=== PATIENT | male | born 1995 | race African-American/Black ===

== ENCOUNTER 2016-09-25 18:45 | Inpatient (IN) | payer OTHER ==
[~2016-09-25] VITALS: Ht 170.2 cm; Wt 81.0 kg
[~2016-09-25 18:45] MED LIST: METH18 PO
[2016-09-25] MEDS ORDERED: LORazepam 2 MG/ML VIAL IM ONE ×2 (19:00→20:00)
[2016-09-25 19:15] VITALS: BP 141/67; PULSE 106; RESP 20; TEMP 99.1; O2SAT 96
[2016-09-25] MEDS ORDERED: LORazepam 2 MG/ML VIAL IV PUSH ONE (19:30)
[2016-09-25 19:42] LABS: AUTOMATED NEUTROPHIL # 3.7 TH/MM3 (1.8-7.7); BASOPHIL % 0.4 % (0.0-2.0); EOSINOPHIL # 0.2 TH/MM3 (0-0.4); EOSINOPHIL % 2.5 % (0.0-4.0); HEMATOCRIT 42.5 % (39.0-51.0); HEMO FLAGS DIFF FINAL; LYMPH % 34.1 % (9.0-44.0); LYMPHOCYTE # 2.5 TH/MM3 (1.0-4.8); MEAN CORPUSCULAR HEMOGLOBIN 31.3 PG (27.0-34.0); MEAN CORPUSCULAR HGB CONC 35.2 % (32.0-36.0); MONO % 12.9 % (0.0-8.0); NEUT % 50.1 % (16.0-70.0); PLATELET COUNT 266 TH/MM3 (150-450); RED BLOOD COUNT 4.78 MIL/MM3 (4.50-5.90); RED CELL DISTRIBUTION WIDTH 13.1 % (11.6-17.2); WHITE BLOOD COUNT 7.3 TH/MM3 (4.0-11.0)
[2016-09-25 19:46] LABS: BACTERIA, URINE RARE /hpf; BLOOD, URINE NEG (NEG); COMMENT (UR) CULT NOT INDICATED; CULTURE IF INDICATED CULT NOT INDICATED; GLUCOSE,URINE NEG (NEG); KETONE, URINE NEG (NEG); MUCUS URINE FEW /lpf (OCC); NITRITE,URINE NEG (NEG); URINE COLOR YELLOW (YELLW/STRAW)
[2016-09-25 19:52] VITALS: BP 121/64; PULSE 100; RESP 18; TEMP 99.5; O2SAT 92
[2016-09-25] MEDS ORDERED: SERT-132 PO (19:55)
[2016-09-25] MEDS ORDERED: METH20CA4 PO (19:56)
[2016-09-25] MEDS ORDERED: LORA-373 PO (19:56)
[2016-09-25 20:19] LABS: ANION GAP 9 MEQ/L (5-15); BICARBONATE 25.5 MEQ/L (21.0-32.0); BLOOD UREA NITROGEN 12 MG/DL (7-18); CHLORIDE 106 MEQ/L (98-107); SODIUM (NA) 140 MEQ/L (136-145)
[2016-09-25 20:22] LABS: AST (GOT) 74 U/L (15-39)
[2016-09-25 20:34] LABS: ALKALINE PHOSPHATASE 66 U/L (45-117); ALT (GPT) 40 U/L (9-52); GLOMERULAR FILTRATION RATE 83 ML/MIN (>89)
[2016-09-25 20:35] LABS: TOTAL BILIRUBIN ADULT 0.5 MG/DL (0.2-1.0)
--- NOTE | 2016-09-25 21:42 | PD ---
HPI Chief Complaint: Psychiatric Symptoms Time Seen by Provider: 18:57 Travel History International Travel<30 days: No Contact w/Intl Traveler<30days: No Traveled to known affect area: No History of Present Illness HPI patient is a 21-year-old male presents emergency Department under [employer] act for bizarre behavior. Patient apparently has a history of bipolar is on Ritalin and sertraline and Xanax. Apparently the patient was behaving bizarrely and 911 was called and officers placed him under Bradley act. Patient had an similar previous presentations emergency department in the past where he admitted to marijuana or marijuana like substance ingestion and took 6 kg of Ativan IM to control him. Patient apparently was also striking against officers and had to be handcuffed first transportation here. He is on arrival singing operative notes in no apparent distress but does become agitated anytime someone interacts with him. 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) Social History Alcohol Use: No Tobacco Use: No Substance Use: Yes Allergies-Medications (Allergen,Severity, Reaction): Coded Allergies: Molds and Smuts (Verified Allergy, Severe, 07/08/16) Reported Meds & Prescriptions Reported Meds & Active Scripts Active Reported Lorazepam 0.5 Mg Tab 0.5 Mg PO Q4H PRN Methylphenidate CD 24 HR (Methylphenidate HCl) 20 Mg Capcr 20 Mg PO DAILY Sertraline (Sertraline HCl) 50 Mg Tab 50 Mg PO DAILY Concerta (Methylphenidate HCl) 18 Mg Leidy Unknown Dose PO DAILY Review of Systems Except as stated in HPI: all other systems reviewed are Neg Physical Exam Narrative GENERAL: Well-developed well-nourished, agitated, singing opera notes. SKIN: Warm and dry. No bruising or lacerations on his head trunk abdomen back neck or extremities. HEAD: Atraumatic. Normocephalic. EYES: Pupils equal and round. No scleral icterus. No injection or drainage. ENT: No nasal bleeding or discharge. Mucous membranes pink and moist. NECK: Trachea midline. No JVD. CARDIOVASCULAR: Regular rate and rhythm. No murmur appreciated. RESPIRATORY: No accessory muscle use. Clear to auscultation. Breath sounds equal bilaterally. GASTROINTESTINAL: Abdomen soft, non-tender, nondistended. Hepatic and splenic margins not palpable. MUSCULOSKELETAL: No obvious deformities. No clubbing. No cyanosis. No edema. NEUROLOGICAL: Awake and alert. No obvious cranial nerve deficits. Follows commands in all 4 extremities. Normal speech. PSYCHIATRIC: Labile, delirious, agitated. Data Data Last Documented VS Vital Signs Date Time Temp Pulse Resp B/P Pulse Ox O2 Delivery O2 Flow Rate FiO2 09/25/16 23:41 15 97 Room Air 09/25/16 19:52 99.5 100 121/64 Orders Complete Blood Count With Diff (09/25/16 18:58) Comprehensive Metabolic Panel (09/25/16 18:58) Thyroid Stimulating Hormone (09/25/16 18:58) Urinalysis - C+S If Indicated (09/25/16 18:58) Electrocardiogram (09/25/16 18:58) Psych Screen (09/25/16 18:58) Lorazepam Inj (Ativan Inj) (09/25/16 19:00) Restraints Violent (09/25/16 18:58) Drug Screen, Random Urine (09/25/16 18:58) Alcohol (Ethanol) (09/25/16 18:58) Lorazepam Inj (Ativan Inj) (09/25/16 19:30) Lorazepam Inj (Ativan Inj) (09/25/16 20:00) Labs Laboratory Tests Test 09/25/16 19:15 White Blood Count 7.3 TH/MM3 Red Blood Count 4.78 MIL/MM3 Hemoglobin 14.9 GM/DL Hematocrit 42.5 % Mean Corpuscular Volume 89.0 FL Mean Corpuscular Hemoglobin 31.3 PG Mean Corpuscular Hemoglobin 35.2 % Concent Red Cell Distribution Width 13.1 % Platelet Count 266 TH/MM3 Mean Platelet Volume 9.3 FL Neutrophils (%) (Auto) 50.1 % Lymphocytes (%) (Auto) 34.1 % Monocytes (%) (Auto) 12.9 % Eosinophils (%) (Auto) 2.5 % Basophils (%) (Auto) 0.4 % Neutrophils # (Auto) 3.7 TH/MM3 Lymphocytes # (Auto) 2.5 TH/MM3 Monocytes # (Auto) 0.9 TH/MM3 Eosinophils # (Auto) 0.2 TH/MM3 Basophils # (Auto) 0.0 TH/MM3 CBC Comment DIFF FINAL Differential Comment Urine Color YELLOW Urine Turbidity CLEAR Urine pH 6.0 Urine Specific Reliance 1.020 Urine Protein NEG mg/dL Urine Glucose (UA) NEG mg/dL Urine Ketones NEG mg/dL Urine Occult Blood NEG Urine Nitrite NEG Urine Bilirubin NEG Urine Urobilinogen LESS THAN 2.0 MG/DL Urine Leukocyte Esterase NEG Urine RBC 2 /hpf Urine WBC 1 /hpf Urine Bacteria RARE /hpf Urine Mucus FEW /lpf Microscopic Urinalysis Comment CULT NOT INDICATED Sodium Level 140 MEQ/L Potassium Level 4.0 MEQ/L Chloride Level 106 MEQ/L Carbon Dioxide Level 25.5 MEQ/L Anion Gap 9 MEQ/L Blood Urea Nitrogen 12 MG/DL Creatinine 1.33 MG/DL Estimat Glomerular Filtration 83 ML/MIN Rate Random Glucose 101 MG/DL Calcium Level 8.6 MG/DL Total Bilirubin 0.5 MG/DL Aspartate Amino Transf 74 U/L (AST/SGOT) Alanine Aminotransferase 40 U/L (ALT/SGPT) Alkaline Phosphatase 66 U/L Total Protein 8.0 GM/DL Albumin 4.2 GM/DL Thyroid Stimulating Hormone 0.981 uIU/ML 3rd Gen Urine Opiates Screen NEG Urine Barbiturates Screen NEG Urine Amphetamines Screen NEG Urine Benzodiazepines Screen NEG Urine Cocaine Screen NEG Urine Cannabinoids Screen POS Ethyl Alcohol Level LESS THAN 3 MG/DL MDM Medical Decision Making Medical Screen Exam Complete: Yes Emergency Medical Condition: Yes Differential Diagnosis Agitated delirium, psychosis, bipolar disorder, substance abuse. Narrative Course Patient was roomed in the emergency department, for his protection and protection my staff he was placed in 4 point restraints on arrival. Over the next hour and a half he was given a total of Ativan 6 mg IM, slowly became more sedate and more redirectable. Labs are reassuring. No evidence of trauma to his person. He is medically stable for psychiatric evaluation and disposition. Diagnosis Primary Impression: Delirium Condition: Stable David Guidry MD Sep 25, 2016 21:42
[2016-09-25 23:41] VITALS: RESP 15; O2SAT 97
[2016-09-26 02:16] VITALS: BP 135/63; PULSE 79; RESP 18; O2SAT 99
[2016-09-26 06:21] VITALS: BP 160/66; PULSE 99; RESP 17; O2SAT 99
[2016-09-26] MEDS ORDERED: diphenhydrAMINE HCL 50 MG CAP PO PRN (10:45)
[2016-09-26 10:50] VITALS: BP 121/78; PULSE 88; RESP 16; TEMP 98.6; O2SAT 99
[2016-09-26] MEDS ORDERED: diphenhydrAMINE HCL 50 MG/ML VIAL IM PRN (11:00)
[2016-09-26] MEDS ORDERED: traZODone HCL 50 MG TAB PO PRN (11:00)
[2016-09-26] MEDS ORDERED: LORazepam 2 MG/ML VIAL IM ONE (11:00)
[2016-09-26] MEDS ORDERED: ACETAMINOPHEN 325 MG TAB PO PRN (11:00)
[2016-09-26] MEDS ORDERED: MAGNESIUM HYDROXIDE SUSP 30 ML CUP PO PRN (11:00)
[2016-09-26] MEDS ORDERED: ZIPRASIDONE MESYLATE 20 MG VIAL IM ONE (11:00)
[2016-09-26] MEDS ORDERED: diphenhydrAMINE HCL 50 MG/ML VIAL IM ONE (11:00)
[2016-09-26] MEDS ORDERED: LORazepam 2 MG/ML VIAL IM PRN (11:00)
--- NOTE | 2016-09-26 16:55 | EKG ---
Date Performed: 09/25/2016 Time Performed: 20:20:26 PTAGE: 21 years EKG: Sinus rhythm WITH MARKED SINUS ARRHYTHMIA NONSPECIFIC T-WAVE ABNORMALITY Since previous tracing, no significant c hange noted ABNORMAL ECG PREVIOUS TRACING : 07/08/2016 12.46 DOCTOR: Andrew Kline Interpretating Date/Time 09/26/2016 16:54:03
[2016-09-26] MEDS: REMOVE OLD NICOTINE PATCH T-DERMAL SCH (21:00)
[2016-09-26] MEDS: LORazepam 1 MG TAB PO PRN (21:24)
[2016-09-26] MEDS: OLANZapine 5 MG TAB PO SCH (21:24)
[2016-09-27 06:08] VITALS: BP 151/72; PULSE 107; RESP 18; TEMP 98.3; O2SAT 96
[2016-09-27 08:19] LABS: ANION GAP 8 MEQ/L (5-15); BICARBONATE 25.5 MEQ/L (21.0-32.0); BLOOD UREA NITROGEN 12 MG/DL (7-18); CHLORIDE 107 MEQ/L (98-107); GLOMERULAR FILTRATION RATE 97 ML/MIN (>89); POTASSIUM 3.7 MEQ/L (3.5-5.1); SODIUM (NA) 140 MEQ/L (136-145)
[2016-09-27 08:22] LABS: HDL CHOLESTEROL 36.8 MG/DL (40.0-60.0); LDL CHOLESTEROL 59 MG/DL (0-99)
[2016-09-27] MEDS: NICOTINE 21 MG/24 HR PATCH T-DERMAL SCH (09:00)
[2016-09-27] MEDS: LORazepam 1 MG TAB PO PRN (09:14)
[2016-09-27] MEDS: OLANZapine 5 MG TAB PO SCH (09:14)
[2016-09-27 09:23] LABS: HEMOGLOBIN A1a 1.1 %; HEMOGLOBIN A1b 1.4 %; HEMOGLOBIN Ao 86.9 %; HEMOGLOBIN LA1C 1.7 %; HEMOGLOBIN P3 3.2 %
--- NOTE | 2016-09-27 09:52 | HHI.HP ---
Provisional Diagnosis Admission Date Sep 26, 2016 at 10:01 [place] I. 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 Cannabis abuse [place] II. Deferred [place] V. GAF is 20 presently Certification of Person's Competence To Provide Express and Informed Consent I have personally examined Estella Yan , a person being served at [facility] on, Sep 27, 2016 09:52. Express and informed consent means consent voluntarily given in writing, by a competent person, after sufficient explanation and disclosure of the subject matter involved to enable the person to make a knowing and willful decision without any element of force, fraud, deceit, duress, or other form of constraint or coercion. This person is 18 years of age or older, is not now known to be incompetent to consent to treatment with a guardian advocate, and does not have a health care surrogate or proxy currently making medical treatment decisions. I have found this person to be one of the following: [] Competent to provide express and informed consent, as defined above, for voluntary admission to this facility and is competent to provide express and informed consent for treatment. He/she has the consistent capacity to make well reasoned, willful, and knowing decisions concerning his or her medical or mental health treatment. The person fully and consistently understands the purpose of the admission for examination/placement and is fully capable of personally exercising all rights assured [place] [x] Incompetent to provide express and informed consent to voluntary admission, and this is incompetent to provide express and informed consent to treatment. The person must be transferred to involuntary status and a petition for a guardian advocate filed with the Circuit Court. [] Refusing to provide express and informed consent to voluntary admission but is competent to provide express and informed consent for treatment. The person must be discharged or transferred to involuntary status. Form shall be completed within 24 hours of a person's arrival at the receiving facility and filed in the clinical record of each person: 1. Admitted on a voluntary basis 2. Permitted to provide express and informed consent to his/her own treatment 3. Allowed to transfer from involuntary to voluntary status 4. Prior to permitting a person to consent to his or her own treatment after having been previously found incompetent to consent to treatment. History of Present Illness Capacity: Lacks Capacity HPI Mr. Yan is a 21-year-old male with a reported history of ADHD , anxiety and psychosis who presents under a Bradley act by law enforcement alleging aggressive behaviors. Reviewing the electronic medical record, I see that the patient was in the emergency room in July for agitated delirium thought to be associated with use of substances. He also had an admission last September under Dr. Eldridge with a self-limited psychosis thought to be due to substance use. Patient seen and examined with counselor. Chart reviewed. Case discussed with nursing staff. Patient has been extremely agitated on the unit requiring multiple ETO's. At the time of my evaluation the patient is disorganized and internally stimulated. He is quite easily agitated and becomes threatening at times. He admits to audiovisual hallucinations "here and there." He denies any suicidal or homicidal ideation but is definitely unreliable contract for safety in his present state. He endorses feelings of thought manipulation. Affect is quite labile. He is fairly dysphoric during my evaluation but subsequently is exalting and singing loudly on the unit. Psychiatric interview is fairly limited because of his degree of psychotic impairment at present. Even patient's degree of psychiatric impairment I have obtained collateral from patient's uncle, Jd Emerson at [phone]. He notes the patient is a student at [employer] and had been doing fairly well when last they spoke ~1 month ago. He was reportedly somewhat upset at his mother at that time. Mr. Emerson notes that patient's mother has mental issues and "killed her ." He also notes that the patient's other uncle has some mental illness that renders him "like a baby." Mr. Emerson is willing to act as patient's HCS if necessary. Past psychiatric history: Patient reports prior diagnosis of ADHD, anxiety and psychosis but does not agree with the psychosis diagnosis. He is treated by a Dr. Hernandes and is prescribed Zoloft, Concerta and Ativan he says. He also takes Seroquel "when I get revved up." He reports his only previous psychiatric admission was here at [facility]. History of suicide attempts. Family history: Patient unsure of family history. Chemical dependency history: Patient admits to recent use of cannabis. Social history: Patient reports that he lives with his mother. He is single with no children. He is a student and is not presently working. He denies any legal issues. No reported access to guns or firearms. Review of Systems ROS Limitations: Psychotic, Poor Historian Other No reported headache, vision or hearing changes, chest pain, shortness of breath , bowel or bladder issues. No other physical complaints. Past Psych History Psychological trauma history Unable to obtain given patient's degree of psychiatric impairment Violence risk - others (6 mos) Elevated. Patient has been agitated on the unit. Violence risk - self (6 mos) elevated given psychosis. Past Family Social History Coded Allergies: Molds and Smuts (Verified Allergy, Severe, 07/08/16) Past Medical History See electronic medical record Reported Medications Lorazepam 0.5 Mg Tab0.5 Mg PO Q4H PRN (For mild anxiety / dyspnea) Ref 0 09/25/16 Methylphenidate CD 24 HR 20 Mg Capcr20 Mg PO DAILY #30 CAP Ref 0 09/25/16 Sertraline 50 Mg Tab50 Mg PO DAILY #30 TAB Ref 0 09/25/16 Methylphenidate ER 24 HR (Concerta)18 Mg TaberUnknown Dose PO DAILY #30 TAB Ref 0 07/08/16 Current Medications Medications (Trade) Dose Ordered Sig/Brendon Route Start Time Stop Time Status Last Admin (Ativan) 1 mg Q6H PRN PO 09/26/16 11:00 09/27/16 09:14 (Ativan Inj) 1 mg Q6H PRN IM 09/26/16 11:00 (Benadryl) 50 mg Q6H PRN PO 09/26/16 10:45 (Benadryl Inj) 50 mg Q6H PRN IM 09/26/16 11:00 (Desyrel) 50 mg HS PRN PO 09/26/16 11:00 09/26/16 21:24 (Tylenol) 650 mg Q4H PRN PO 09/26/16 11:00 (Milk Of Magnesia Liq) 30 ml DAILY PRN PO 09/26/16 11:00 (Mag-Al Plus Susp Liq) 30 ml Q6H PRN PO 09/26/16 11:00 (Habitrol 21 Mg Patch.24 Hr) 1 patch DAILY T-DERMAL 09/27/16 09:00 Miscellaneous Information 1 HS T-DERMAL 09/26/16 21:00 (ZyPREXA) 5 mg BID PO 09/26/16 21:00 09/27/16 09:14 Patient's Strengths (min. 2) In a monitored setting. Verbally fluent. Physical Exam Physical examination completed by ED provider. On my examination today, patient is well-nourished and well-developed and in no acute physical distress. No abnormal motor movements noted. No signs of withdrawal noted. Labs and vital signs reviewed. Vital Signs Vital Signs Date Time Temp Pulse Resp B/P Pulse Ox O2 Delivery O2 Flow Rate FiO2 09/27/16 06:08 98.3 107 18 151/72 96 09/26/16 06:21 Room Air Lab Results Item Value Date Time White Blood Count 7.3 TH/MM3 09/25/161914 Hemoglobin 14.9 GM/DL 09/25/161914 Platelet Count 266 TH/MM3 09/25/161914 Sodium Level 140 MEQ/L 09/27/16719 Potassium Level 3.7 MEQ/L 09/27/16719 Chloride Level 107 MEQ/L 09/27/16719 Carbon Dioxide Level 25.5 MEQ/L 09/27/16719 Blood Urea Nitrogen 12 MG/DL 09/27/16719 Creatinine 1.16 MG/DL 09/27/16719 Total Bilirubin 0.5 MG/DL 09/25/161914 Aspartate Amino Transf (AST/SGOT) 74 U/L H 09/25/161914 Alanine Aminotransferase (ALT/SGPT) 40 U/L 09/25/161914 Alkaline Phosphatase 66 U/L 09/25/161914 Urine Cannabinoids Screen POS H 09/25/161914 Ethyl Alcohol Level LESS THAN 3 MG/DL 09/25/161914 Urinalysis bland. Mental Status Examination Patient is casually dressed. He is fairly well groomed. No motoric abnormalities noted. He is somewhat psychomotor agitated. Speech is rambling and somewhat pressured. Language and fund of knowledge seem average. Mood is reportedly fair but affect is quite labile. Thought process somewhat disorganized. Associations loose. Feelings of thought manipulation articulated. Endorses vague audiovisual hallucinations and appears internally stimulated. Denies suicidal or homicidal ideation but is likely unreliable to contract for safety in his present state. Insight and judgment are poor. Assessment & Plan Problem List: (1) Psychosis ICD Code: F29 (2) Cannabis abuse ICD Code: F12.10 Assessment & Plan This is a 21-year-old male with a history of substance-induced psychoses who presents under a Bradley act in a psychotic state. Toxicology is positive only for cannabinoids but the patient does have a history of synthetic use in the past. Patient's previous episodes of psychosis have been self- limited, but this episode seems more persistent and associated with greater behavioral disturbance. Patient requires psychiatric admission at this time for safety, observation and stabilization. Admit inpatient. Involuntary status. I've completed first opinion. Consult for second opinion. Request healthcare surrogate and guardian advocate. Patient was started on Zyprexa yesterday in the ED for the management of psychosis but seems to respond better to the Geodon ETO's he has received. I will discontinue Zyprexa and replace with Geodon PO/IM. Hold reported home psychotropics; the stimulant in particular could exacerbate his condition. Ativan as needed for anxiety, Benadryl as needed for sleep, Cogentin as needed for EPS. Vitals every shift. Counselor to see and obtain further collateral. Disposition planning. Estimated length of stay: 3-5 days. Discharge Planning Pending psychiatric stabilization Request HC Surrog/Guard Advoc?: Yes Problem Qualifiers (1) Psychosis: Qualified Code: F23 - Brief psychotic disorder Jonathan Way MD Sep 27, 2016 09:52
[2016-09-27] MEDS ORDERED: ZIPRASIDONE MESYLATE 20 MG VIAL IM STA (11:26)
[2016-09-27] MEDS ORDERED: LORazepam 2 MG/ML VIAL IM STA (11:26)
[2016-09-27] MEDS ORDERED: diphenhydrAMINE HCL 50 MG/ML VIAL IM STA (11:26)
[2016-09-27] MEDS ORDERED: ZIPRASIDONE MESYLATE 20 MG VIAL IM PRN (12:15)
[2016-09-27] MEDS ORDERED: BENZTROPINE MESYLATE 1 MG TAB PO PRN (12:15)
[2016-09-27] MEDS ORDERED: BENZTROPINE MESYLATE 2 MG/2 ML VIAL IM PRN (12:15)
--- NOTE | 2016-09-27 15:03 | PD.CONS ---
Provisional Diagnosis Admission Date Sep 26, 2016 at 10:01 [place] I. 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 Cannabis abuse [place] II. Deferred [place] V. GAF is 20 presently History of Present Illness Service Psychiatry Consult Requested By Primary Care Physician No Primary Care Physician HPI Mr. Yan is a 21-year-old male with a reported history of ADHD , anxiety and psychosis who presents under a Bradley act by law enforcement alleging aggressive behaviors. Reviewing the electronic medical record, I see that the patient was in the emergency room in July for agitated delirium thought to be associated with use of substances. He also had an admission last September under Dr. Eldridge with a self-limited psychosis thought to be due to substance use. Patient seen and examined with counselor. Chart reviewed. Case discussed with nursing staff. Patient has been extremely agitated on the unit requiring multiple ETO's. At the time of my evaluation the patient is disorganized and internally stimulated. He is quite easily agitated and becomes threatening at times. He admits to audiovisual hallucinations "here and there." He denies any suicidal or homicidal ideation but is definitely unreliable contract for safety in his present state. He endorses feelings of thought manipulation. Affect is quite labile. He is fairly dysphoric during my evaluation but subsequently is exalting and singing loudly on the unit. Psychiatric interview is fairly limited because of his degree of psychotic impairment at present. Even patient's degree of psychiatric impairment I have obtained collateral from patient's uncle, Jd Emerson at [phone]. He notes the patient is a student at [employer] and had been doing fairly well when last they spoke ~1 month ago. He was reportedly somewhat upset at his mother at that time. Mr. Emerson notes that patient's mother has mental issues and "killed her ." He also notes that the patient's other uncle has some mental illness that renders him "like a baby." Mr. Emerson is willing to act as patient's HCS if necessary. Past psychiatric history: Patient reports prior diagnosis of ADHD, anxiety and psychosis but does not agree with the psychosis diagnosis. He is treated by a Dr. Hernandes and is prescribed Zoloft, Concerta and Ativan he says. He also takes Seroquel "when I get revved up." He reports his only previous psychiatric admission was here at [facility]. History of suicide attempts. Family history: Patient unsure of family history. Chemical dependency history: Patient admits to recent use of cannabis. Social history: Patient reports that he lives with his mother. He is single with no children. He is a student and is not presently working. He denies any legal issues. No reported access to guns or firearms. 09/27/16 Of note dictated by Dr. Way reviewed and agreed with. Dr. Way has signed first opinion petition supporting Bradley act. Patient seen by me in his room with nurse Alie somewhat sedated after being given an ETO for out-of- control behavior loud paranoid and intrusive. Dr. Way is signed first opinion petition supporting Bradley act. I agree. Patient meets criteria for involuntary psychiatric hospitalization under the Bradley act. Thus I will cosign second opinion petition supporting Bradley act Past Family Social History Coded Allergies: Molds and Smuts (Verified Allergy, Severe, 07/08/16) Reported Medications Lorazepam 0.5 Mg Tab0.5 Mg PO Q4H PRN (For mild anxiety / dyspnea) Ref 0 09/25/16 Methylphenidate CD 24 HR 20 Mg Capcr20 Mg PO DAILY #30 CAP Ref 0 09/25/16 Sertraline 50 Mg Tab50 Mg PO DAILY #30 TAB Ref 0 09/25/16 Methylphenidate ER 24 HR (Concerta)18 Mg TaberUnknown Dose PO DAILY #30 TAB Ref 0 07/08/16 Current Medications Medications (Trade) Dose Ordered Sig/Brendon Route Start Time Stop Time Status Last Admin (Tylenol) 650 mg Q4H PRN PO 09/26/16 11:00 (Milk Of Magnesia Liq) 30 ml DAILY PRN PO 09/26/16 11:00 (Mag-Al Plus Susp Liq) 30 ml Q6H PRN PO 09/26/16 11:00 (Habitrol 21 Mg Patch.24 Hr) 1 patch DAILY T-DERMAL 09/27/16 09:00 Miscellaneous Information 1 HS T-DERMAL 09/26/16 21:00 (Benadryl) 50 mg HS PRN PO 09/27/16 21:00 (Ativan) 2 mg Q6H PRN PO 09/27/16 17:00 (Ativan Inj) 2 mg Q6H PRN IM 09/27/16 17:00 (Cogentin) 1 mg Q12HR PRN PO 09/27/16 12:15 (Cogentin Inj) 1 mg Q12HR PRN IM 09/27/16 12:15 (Geodon) 40 mg BIDPC PO 09/27/16 18:00 (Geodon Inj) 20 mg BIDPC PRN IM 09/27/16 12:15 Patient's Strengths (min. 2) In a monitored setting. Verbally fluent. Physical Exam Vital Signs Vital Signs Date Time Temp Pulse Resp B/P Pulse Ox O2 Delivery O2 Flow Rate FiO2 09/27/16 06:08 98.3 107 18 151/72 96 09/26/16 06:21 Room Air Mental Status Examination Speech: Rapid, Other (disorganized) Orientation: Person Memory: Unremarkable (poor) Thought Process: Linear, Other (somewhat disorganized) Thought Content: Paranoid Hallucination Type: Auditory (vague) Attention and Concentration: Other (poor) Suicidal Ideation: No Previous Suicide Attempts: No Homicidal Ideation: No Previous Homicide Attempts: No Insight: Poor Judgement: Poor Affect: Other (increased range and intensity) Mood: Irritable Motor Activity: Normal gait Assessment & Plan Problem List: (1) Psychosis ICD Code: F29 (2) Cannabis abuse ICD Code: F12.10 Assessment & Plan Estimated LOS: days Request HC Surrog/Guard Advoc?: Yes Problem Qualifiers (1) Psychosis: Qualified Code: F23 - Brief psychotic disorder Vikram Eldridge MD Sep 27, 2016 15:03
[2016-09-27] MEDS ORDERED: LORazepam 2 MG/ML VIAL IM PRN (17:00)
[2016-09-27] MEDS: ZIPRASIDONE HCL 40 MG CAP PO SCH (17:27)
[2016-09-27 18:27] VITALS: BP 109/62; PULSE 88; RESP 18; TEMP 98.2
[2016-09-27] MEDS ORDERED: diphenhydrAMINE HCL 50 MG CAP PO PRN (21:00)
[2016-09-27] MEDS: REMOVE OLD NICOTINE PATCH T-DERMAL SCH (21:00)
[2016-09-28 06:14] VITALS: BP 144/118; PULSE 99; RESP 18; TEMP 98.3; O2SAT 98
[2016-09-28] MEDS: LORazepam 1 MG TAB PO PRN ×3 (06:30→20:37)
[2016-09-28] MEDS ORDERED: FLUMAZENIL 0.5 MG/5 ML VIAL IV PUSH PRN (08:15)
[2016-09-28] MEDS ORDERED: LORazepam 2 MG TAB PO PRN (08:15)
[2016-09-28] MEDS ORDERED: LORazepam 1 MG TAB PO PRN (08:15)
[2016-09-28] MEDS ORDERED: LORazepam 2 MG/ML VIAL IV PUSH PRN ×4 (08:15)
[2016-09-28] MEDS ORDERED: diphenhydrAMINE HCL 50 MG/ML VIAL IM STA (08:27)
[2016-09-28] MEDS ORDERED: ZIPRASIDONE MESYLATE 20 MG VIAL IM STA (08:27)
--- NOTE | 2016-09-28 08:28 | HHI.PYPN ---
Subjective Remarks Patient seen and examined. Chart reviewed. Case discussed with nursing staff. Prior to my evaluation, patient is once again singing and exalting on the unit. Affect remains quite labile, and during the course of our interview he varies between exuberant glee and extreme dysphoria. Mood is "amazing! Today is better than all the days!" He remains internally stimulated. He is impulsive, intrusive, and disinhibited. Very low frustration tolerance, and becomes agitated and frankly threatening when he learns he will not be discharged today. Patient required ETO with Geodon, Ativan and Benadryl IM for agitation. Review of Systems ROS Limitations: Psychotic, Poor Historian Other No physical complaints today. Objective Alert: Yes [place]: Person, Place, Date (approx) Mood: Agitated, Angry, Anxious, Oppositional, Other (Manic) Affect: Labile Memory Intact: Comment (Not formally assessed) Hallucinations: Other (Int stim) Delusions: Yes Delusion Type: Grandiose, Paranoid Suicidal: Ideation (No SI but unreliable to contract for safety in present state.) Homicidal: Ideation (No HI but unreliable to contract for safety in present state.) Insight/Judgement Poor Remarks No abnormal motor movements noted. Speech hyperverbal, somewhat pressured. TP perseverative on discharge. Labs Labs reviewed. No new labs. Extended tox pending. Vitals/IOs Vital Signs Date Time Temp Pulse Resp B/P Pulse Ox O2 Delivery O2 Flow Rate FiO2 09/28/16 06:14 98.3 99 18 144/118 98 09/26/16 06:21 Room Air Assessment & Plan Problem List: (1) Psychosis Assessment & Plan: with affective overlay. Rule-out BPAD/SAD, mixed severe with psychosis. ICD Code: F29 (2) Cannabis abuse ICD Code: F12.10 Assessment & Plan Titrate Geodon to 60mg BIDPC for psychosis with plans for daily dose titration to effect. Geodon IM PRN refuses PO Geodon. For mood stabilization, I will orally load with Depakote ER, so long as he will take it. Patient has a mild AST elevation (although sample was hemolyzed) but other LFTs are ok. Plt ok. I will therefore load at the lower end of the range, slightly less than 20mg/kg , or 1500mg qHS and plan to check LFTs tomorrow and again when we check VPA level after the weekend. Continue to monitor closely on the unit. Violent prec. Continue other medications and care as ordered. Justification for Cont. Inpt. Impairment and safety. Impairment in reality construction. Impairment in social function. Medication changes requiring monitoring. High risk for decompensation in a lower level of care. Discharge Planning Pending psychiatric stabilization. Request HC Surrog/Guard Advoc?: Yes Problem Qualifiers (1) Psychosis: Qualified Code: F23 - Brief psychotic disorder Jonathan Way MD Sep 28, 2016 08:28
[2016-09-28 08:43] LABS: AMPHETAMINE, URINE NEG (NEG); BARBITURATES, URINE NEG (NEG); COCAINE, URINE NEG (NEG)
[2016-09-28] MEDS: ZIPRASIDONE HCL 40 MG CAP PO SCH (08:59)
[2016-09-28] MEDS: NICOTINE 21 MG/24 HR PATCH T-DERMAL SCH (09:00)
[2016-09-28 15:15] VITALS: BP 135/81; PULSE 88
[2016-09-28] MEDS: ZIPRASIDONE HCL 60 MG CAP PO SCH (18:26)
[2016-09-28 19:31] VITALS: BP 135/81; PULSE 88; RESP 16; TEMP 98.3
[2016-09-28] MEDS: DIVALPROEX SODIUM E.R. 500 MG TAB PO SCH (20:37)
[2016-09-28] MEDS: REMOVE OLD NICOTINE PATCH T-DERMAL SCH (20:45)
[2016-09-28 21:41] LABS: INDIRECT BILIRUBIN 0.3 MG/DL (0.0-0.8); TOTAL BILIRUBIN ADULT 0.4 MG/DL (0.2-1.0)
[2016-09-29 06:09] VITALS: BP 133/77; PULSE 103; RESP 18; TEMP 98.2; O2SAT 97
[2016-09-29] MEDS: NICOTINE 21 MG/24 HR PATCH T-DERMAL SCH (08:38)
[2016-09-29] MEDS: LORazepam 1 MG TAB PO PRN ×2 (08:38→20:00)
[2016-09-29] MEDS: ZIPRASIDONE HCL 60 MG CAP PO SCH (08:38)
--- NOTE | 2016-09-29 10:52 | HHI.PYPN ---
Subjective Remarks Patient seen and examined with counselor and the [facility] health techs for staff safety given patient's level of agitation yesterday. Chart reviewed. Case discussed with nursing staff who reports the patient was high-energy yesterday evening but not particularly aggressive. On my examination today, the patient remains somewhat elated. He says that he feels "amazing. I feel great. I feel balanced." He denies audiovisual hallucinations but remains internally preoccupied. He is somewhat grandiose. His mood quickly sours when we discuss the need to monitor him over the weekend. He visibly stiffens but is able to restrain himself from explosive anger. His insight into his current illness is poor. He apparently thinks he has to get back to school or risk failure. Counselor reassures him that we will provide him a medical excuse for his absence from school. No side effects from medications. Review of Systems ROS Limitations: Psychotic, Poor Historian Other no physical complaints today Objective Alert: Yes [place]: Person, Place Mood: Angry, Anxious Affect: Labile (somewhat less) Memory Intact: Comment (Not formally assessed) Hallucinations: Other (remains somewhat internally stimulated) Delusions: Yes Delusion Type: Grandiose, Paranoid Suicidal: Ideation (No SI but remains unreliable to contract for safety in present state.) Homicidal: Ideation (No HI but remains unreliable to contract for safety in present state.) Insight/Judgement Poor Remarks Thought process marginally more linear. Speech less pressured. No abnormal motor movements noted. Labs Test 09/28/16 21:18 Total Bilirubin 0.4 MG/DL Direct Bilirubin 0.1 MG/DL Indirect Bilirubin 0.3 MG/DL Aspartate Amino Transf 38 U/L (AST/SGOT) Alanine Aminotransferase 36 U/L (ALT/SGPT) Alkaline Phosphatase 59 U/L Total Protein 7.1 GM/DL Albumin 3.8 GM/DL Labs reviewed. LFTs within normal limits. Vitals/IOs Vital Signs Date Time Temp Pulse Resp B/P Pulse Ox O2 Delivery O2 Flow Rate FiO2 09/29/16 06:09 98.2 103 18 133/77 97 09/26/16 06:21 Room Air Assessment & Plan Problem List: (1) Psychosis ICD Code: F29 (2) Cannabis abuse ICD Code: F12.10 Assessment & Plan We are definitely seeing a trajectory of improvement in this patient with the addition of Depakote and titration of Geodon. I will plan to titrate Geodon over the weekend. Depakote level has been ordered for after the weekend. Continue to monitor on the inpatient unit. Continue other medications and care as ordered. Justification for Cont. Inpt. Concern for ongoing impairments in safety. Impairment in reality construction. Impairment in social function. Very high risk for decompensation in a lower level of care pending psychiatric stabilization. Discharge Planning Pending psychiatric stabilization. Request HC Surrog/Guard Advoc?: Yes Problem Qualifiers (1) Psychosis: Qualified Code: F23 - Brief psychotic disorder Jonathan Way MD Sep 29, 2016 10:52
[2016-09-29] MEDS: ZIPRASIDONE HCL 80 MG CAP PO SCH (18:47)
[2016-09-29] MEDS: DIVALPROEX SODIUM E.R. 500 MG TAB PO SCH (19:59)
[2016-09-29] MEDS: REMOVE OLD NICOTINE PATCH T-DERMAL SCH (21:00)
[2016-09-29 22:47] VITALS: BP 135/81; PULSE 88; RESP 16; TEMP 98.3; O2SAT 97
[2016-09-30 06:21] VITALS: BP 151/79; PULSE 99; RESP 18; TEMP 98.3; O2SAT 94
[2016-09-30] MEDS: ZIPRASIDONE HCL 80 MG CAP PO SCH ×2 (08:49→18:03)
[2016-09-30] MEDS: NICOTINE 21 MG/24 HR PATCH T-DERMAL SCH (08:49)
[2016-09-30] MEDS: LORazepam 1 MG TAB PO PRN (08:57)
--- NOTE | 2016-09-30 15:49 | HHI.PYPN ---
Subjective Remarks Patient was seen, note reviewed yesterday, and case discussed with nursing. Patient has not shown any aggressive behaviors or thoughts today. He was visiting before this interview. Mood remains elated thought process somewhat bizarre. Patient says that he is waking up after a long slumber. Patient claims his psychiatric medications reporting him in the slumber. Patient says he enjoys listening to music because again lowers heartbeat help his anxiety. Denies auditory visual hallucinations. Patient is asking for lower doses of medication and in when his request was declined psychoeducation he does not show any irritability or anger Objective Alert: Yes [place]: Person, Place Mood: Angry, Anxious Affect: Labile (somewhat less) Memory Intact: Comment (Not formally assessed) Hallucinations: Other (remains somewhat internally stimulated) Delusions: Yes Delusion Type: Grandiose, Paranoid Suicidal: Ideation (No SI but remains unreliable to contract for safety in present state.) Homicidal: Ideation (No HI but remains unreliable to contract for safety in present state.) Insight/Judgement Poor Vitals/IOs Vital Signs Date Time Temp Pulse Resp B/P Pulse Ox O2 Delivery O2 Flow Rate FiO2 09/30/16 06:21 98.3 99 18 151/79 94 Assessment & Plan Problem List: (1) Psychosis ICD Code: F29 (2) Cannabis abuse ICD Code: F12.10 Assessment & Plan Continue current treatment plan Justification for Cont. Inpt. Patient will decompensate in a less restrictive setting Request HC Surrog/Guard Advoc?: Yes Problem Qualifiers (1) Psychosis: Qualified Code: F23 - Brief psychotic disorder Carlin Vargas DO Sep 30, 2016 15:48
[2016-09-30 19:45] VITALS: BP 132/69; PULSE 104; RESP 19; TEMP 97.6; O2SAT 89
[2016-09-30] MEDS: REMOVE OLD NICOTINE PATCH T-DERMAL SCH (21:00)
[2016-09-30] MEDS: DIVALPROEX SODIUM E.R. 500 MG TAB PO SCH (21:35)
[2016-10-01 05:38] VITALS: BP 129/78; PULSE 94; RESP 21; TEMP 98.4; O2SAT 100
[2016-10-01] MEDS: LORazepam 1 MG TAB PO PRN ×2 (08:50→17:10)
[2016-10-01] MEDS: ALUMINUM/MAGNESIUM/SIMETH 30 ML CUP PO PRN (08:50)
[2016-10-01] MEDS: ZIPRASIDONE HCL 80 MG CAP PO SCH ×2 (08:50→18:00)
[2016-10-01] MEDS: NICOTINE 21 MG/24 HR PATCH T-DERMAL SCH (08:55)
--- NOTE | 2016-10-01 16:30 | HHI.PYPN ---
Subjective Remarks Patient was seen and case discussed with nursing. Patient slightly less elevated today. Continues to sing opera music to himself on a daily basis per nursing. Patient says that's part of his routine. He is sleeping well per patient. Compliant with his medications. No bizarre statements today. No delusions elicited. Behaving well on the unit Objective Alert: Yes [place]: Person, Place Mood: Angry, Anxious Affect: Labile (somewhat less) Memory Intact: Comment (Not formally assessed) Hallucinations: Other (remains somewhat internally stimulated) Delusions: Yes Delusion Type: Grandiose, Paranoid Suicidal: Ideation (No SI but remains unreliable to contract for safety in present state.) Homicidal: Ideation (No HI but remains unreliable to contract for safety in present state.) Insight/Judgement Improving Vitals/IOs Vital Signs Date Time Temp Pulse Resp B/P Pulse Ox O2 Delivery O2 Flow Rate FiO2 10/01/16 05:38 98.4 94 21 129/78 100 Assessment & Plan Problem List: (1) Psychosis ICD Code: F29 (2) Cannabis abuse ICD Code: F12.10 Assessment & Plan Continue current treatment plan Justification for Cont. Inpt. Patient will decompensate in a less restrictive setting Request HC Surrog/Guard Advoc?: Yes Problem Qualifiers (1) Psychosis: Qualified Code: F23 - Brief psychotic disorder Carlin Vargas DO Oct 01, 2016 16:30
[2016-10-01 17:16] VITALS: BP 114/69; PULSE 93; RESP 18; TEMP 98.1; O2SAT 100
[2016-10-01] MEDS: DIVALPROEX SODIUM E.R. 500 MG TAB PO SCH (20:40)
[2016-10-01] MEDS: REMOVE OLD NICOTINE PATCH T-DERMAL SCH (21:00)
[2016-10-02 05:58] VITALS: BP 150/71; PULSE 95; RESP 20; TEMP 97.8; O2SAT 96
[2016-10-02] MEDS: ZIPRASIDONE HCL 80 MG CAP PO SCH ×2 (08:14→17:24)
[2016-10-02] MEDS: NICOTINE 21 MG/24 HR PATCH T-DERMAL SCH (08:15)
[2016-10-02 08:19] LABS: INDIRECT BILIRUBIN 0.2 MG/DL (0.0-0.8); TOTAL BILIRUBIN ADULT 0.3 MG/DL (0.2-1.0)
[2016-10-02 10:05] LABS: BATH SALTS (MDPV) UR NEG (NEG); ECSTASY (MDMA) UR NEG (NEG); HEROIN (6-ACETYLMORPHINE) UR NEG (NEG); K2 SPICE UR NEG (NEG); OBMETHADONE UR NEG (NEG); OXYCODONE (PERCODAN) NEG (NEG); PHENCYCLIDINE URINE NEG (NEG)
--- NOTE | 2016-10-02 10:16 | HHI.PYPN ---
Subjective Remarks Patient seen and examined. Chart reviewed. Case discussed with nursing staff. Per nursing staff, patient has some ongoing thought process disorganization but did sleep well last night. He remains disinhibited, and I find him belting out some musical tune as he is walking around the unit. On my examination today , the patient says that he feels "amazing, I'm just waiting to get out." He says that he continues to struggle with containing his anger but feels this too is improving. He says that he prefers the psychotropics he is prescribed here to what his outpatient psychiatrist was prescribing, noting, "they been treating me right. I feel like I can focus without stimulants." He denies side effects from medications. He remains quite discharge focused, and when I recommend that he remain for further stabilization, he once again has a flash of anger, gritting his teeth and visibly stiffening. He is able to avoid behavioral outburst however. Review of Systems Other No physical complaints today Objective Alert: Yes [place]: Person, Place Mood: Other (Actively working at remaining calm. Remains somewhat irascible however.) Affect: Labile Memory Intact: Comment (Not formally assessed) Hallucinations: Other (less int stim) Delusions: Yes Delusion Type: Grandiose Suicidal: Ideation (No SI but remains unreliable to contract for safety) Homicidal: Ideation (No HI but remains unreliable to contract for safety.) Insight/Judgement Poor Remarks No abnormal motor movements noted. TP more linear. Speech generally wnl for rate, tone, volume. Labs Labs reviewed. Depakote level within the therapeutic range. Ammonia level not elevated. LFTs okay. Test 10/02/16 07:25 Total Bilirubin 0.3 MG/DL Direct Bilirubin 0.1 MG/DL Indirect Bilirubin 0.2 MG/DL Aspartate Amino Transf 17 U/L (AST/SGOT) Alanine Aminotransferase 29 U/L (ALT/SGPT) Alkaline Phosphatase 66 U/L Ammonia 28 MCMOL/L Total Protein 7.2 GM/DL Albumin 3.7 GM/DL Valproic Acid (Depakene) Level 97 MCG/ML Vitals/IOs Vital Signs Date Time Temp Pulse Resp B/P Pulse Ox O2 Delivery O2 Flow Rate FiO2 10/02/16 05:58 97.8 95 20 150/71 96 Assessment & Plan Problem List: (1) Bipolar disorder ICD Code: F31.9 (2) Cannabis abuse ICD Code: F12.10 Assessment & Plan I have adjusted patient's diagnosis to reflect my suspicion that the patient suffers from a bipolar illness, presently manic. We are making inroads in this radha with Geodon and Depakote, and I will titrate his Geodon in service of further mood stabilization. Although the patient is improving, my sense of the cases that if he were discharged at this point he would rapidly become medication nonadherent and decompensate secondary to ongoing poor insight. I will therefore continue to monitor him on the inpatient unit. Continue other medications and care as ordered. Justification for Cont. Inpt. Impairment in reality construction. Medication changes in process. High risk for decompensation in a lower level of care. Discharge Planning Pending psychiatric stabilization. Hopeful for discharge middle to end of this week. Request HC Surrog/Guard Advoc?: Yes Problem Qualifiers (1) Bipolar disorder: Qualified Code: F31.2 - Bipolar affective disorder, currently manic, severe, with psychotic features Jonathan Way MD Oct 02, 2016 10:16
[2016-10-02 15:34] VITALS: BP 125/60; PULSE 93; RESP 18; TEMP 97.9; O2SAT 97
[2016-10-02] MEDS: ZIPRASIDONE HCL 20 MG CAP PO SCH (17:24)
[2016-10-02] MEDS: DIVALPROEX SODIUM E.R. 500 MG TAB PO SCH (20:39)
[2016-10-02] MEDS: REMOVE OLD NICOTINE PATCH T-DERMAL SCH (21:00)
[2016-10-03 05:52] VITALS: BP 126/75; PULSE 92; RESP 18; TEMP 98.1; O2SAT 98
[2016-10-03] MEDS: ZIPRASIDONE HCL 80 MG CAP PO SCH (08:50)
[2016-10-03] MEDS: ZIPRASIDONE HCL 20 MG CAP PO SCH (08:50)
[2016-10-03] MEDS: NICOTINE 21 MG/24 HR PATCH T-DERMAL SCH (08:50)
[2016-10-03] MEDS: LORazepam 1 MG TAB PO PRN ×2 (09:25→17:24)
--- NOTE | 2016-10-03 09:32 | HHI.PYPN ---
Subjective Remarks Patient seen and examined with counselor. Chart reviewed. Case discussed with nursing staff, counselor and rec therapist in treatment team. Per nursing staff , patient remains hyperverbal, disinhibited and generally manic in his behavior. Per rec therapist, patient is boisterous and attention seeking in groups, singing even when inappropriate to the circumstance. Counselor has been in contact with patient's mother, who has been speaking with patient, and relays her concerns that the patient has significant ongoing psychosis, including believing that mother is the Hoam Bledsoe. On my examination today, patient is calm but with an irritable edge. He is wide-eyed, staring, intense and speech is somewhat pressured. He says, "I feel like I'm on the right treatment because right when I feel like I'm losing myself, it's time for my meds." He says that he likes his current regimen because he finds it less sedating than his outpatient regimen. He articulates a belief that he is the "center of attention" that seems in context more like a delusion of reference or grandiosity, saying that he believes that others are somehow communicating his pre-eminence to him. Denies side effects from medications. Review of Systems ROS Limitations: Poor Historian Other No physical complaints today. Objective Alert: Yes [place]: Person, Place (at least) Mood: Other (Somewhat ) Affect: Labile Memory Intact: Comment (Not formally assessed) Hallucinations: Other (Somewhat int stim) Delusions: Yes Delusion Type: Grandiose (with some referential ideas) Suicidal: Ideation (No SI but remains unreliable to contract for safety) Homicidal: Ideation (No HI but remains unreliable to contract for safety.) Insight/Judgement Poor Remarks TP fairly linear. Speech remains a little pressured. No abnormal motor movements noted. Labs Labs reviewed. No new labs. Vitals/IOs Vital Signs Date Time Temp Pulse Resp B/P Pulse Ox O2 Delivery O2 Flow Rate FiO2 10/03/16 05:52 98.1 92 18 126/75 98 Assessment & Plan Problem List: (1) Bipolar disorder ICD Code: F31.9 (2) Cannabis abuse ICD Code: F12.10 Assessment & Plan Titrate Geodon to the top of the dosage range for further mood stabilization and for psychosis. If incompletely effective, may need temporarily to add a second antipsychotic. Continue other medications and care as ordered. Justification for Cont. Inpt. Impairment in reality construction. Medication changes in process. High risk for decompensation in a lower level of care. Discharge Planning Pending psychiatric stabilization Request HC Surrog/Guard Advoc?: Yes Problem Qualifiers (1) Bipolar disorder: Qualified Code: F31.2 - Bipolar affective disorder, currently manic, severe, with psychotic features Jonathan Way MD Oct 03, 2016 09:32
[2016-10-03] MEDS: ZIPRASIDONE HCL 60 MG CAP PO SCH (17:24)
[2016-10-03 18:14] VITALS: BP 133/75; PULSE 90; RESP 18; TEMP 97.4; O2SAT 99
[2016-10-03] MEDS: REMOVE OLD NICOTINE PATCH T-DERMAL SCH (20:29)
[2016-10-03] MEDS: DIVALPROEX SODIUM E.R. 500 MG TAB PO SCH (20:40)
[2016-10-04 05:50] VITALS: BP 121/73; PULSE 18; PULSE 94; RESP 18; TEMP 98; O2SAT 96
[2016-10-04] MEDS: ZIPRASIDONE HCL 60 MG CAP PO SCH ×2 (08:49→18:03)
[2016-10-04] MEDS: NICOTINE 21 MG/24 HR PATCH T-DERMAL SCH (08:50)
--- NOTE | 2016-10-04 08:50 | HHI.PYPN ---
Subjective Remarks Patient seen and examined with RN and counselor. Chart reviewed. Case discussed with RN who reports patient has been in better behavioral control. There is a disinhibited female who has been somewhat solicitous, and nursing staff tells me that patient has been assiduously avoiding her advances. On my examination today, patient says that he appreciates the closer attention to his medication management he is receiving here versus what he had had in the outpatient clinic. He notes that he was having side effects from his outpatient regimen and so he unilaterally decided to halve his doses. He now knows that he should have instead contacted his psychiatrist, and this is what he says he would do in the future. Patient remains a little distractible and grandiose. At seemingly random times during the interview he stands up and spreads his arms wide while speaking, as if orating for a crowd. He does admit that he conceived of the notion that his mother was the Homa Bledsoe, and he believes that he has "special skills of tone" that allow him to act as a "vessel " to help others. However, he notes that he "lives by these ideas, but I don't let them rule me." He remains somewhat discharge focused. Denies side effects from medications. Review of Systems ROS Limitations: Psychotic Other No physical complaints today. Objective Alert: Yes [place]: Person, Place Mood: Calm Affect: Other (Mildly expansive.) Memory Intact: Comment (Not formally assessed) Hallucinations: Other (No AVH) Delusions: Yes Delusion Type: Grandiose Suicidal: Ideation (Denies SI) Homicidal: Ideation (Denies HI) Insight/Judgement Perhaps improving somewhat. Remarks TP remains a little scattered with loosening of associations. Speech wnl for rate, tone and volume. No abnormal motor movements noted. Grooming and hygiene are fair. Labs Labs reviewed. No new labs. Vitals/IOs Vital Signs Date Time Temp Pulse Resp B/P Pulse Ox O2 Delivery O2 Flow Rate FiO2 10/04/16 05:50 98.0 18 18 121/73 96 Assessment & Plan Problem List: (1) Bipolar disorder ICD Code: F31.9 (2) Cannabis abuse ICD Code: F12.10 Assessment & Plan We continue to see incremental, if somewhat slow improvement in patient's radha with Geodon/Depakote combination, and the doses of these agents are essentially maximal. However, the patient remains too symptomatic to treat at a lower level of care at this juncture owing to ongoing psychosis with attendant unpredictability. I will add Zyprexa 5mg qHS for additional mood stabilization and for psychosis. If this is effective, we may consider cross-tapering Geodon to Zyprexa or else temporarily pursuing antipsychotic polypharmacy with plans for reduction to monotherapy on an outpatient basis. Continue to monitor on the inpatient unit. Continue other medications and care as ordered. Justification for Cont. Inpt. Impairment in reality testing. Medication changes in process. Very high risk for decompensation in a less restrictive environment. Discharge Planning Pending outcome of [address] tomorrow. Request HC Surrog/Guard Advoc?: Yes Problem Qualifiers (1) Bipolar disorder: Qualified Code: F31.2 - Bipolar affective disorder, currently manic, severe, with psychotic features Jonathan Way MD Oct 04, 2016 08:49
[2016-10-04 18:00] VITALS: BP 122/71; PULSE 87; RESP 18; TEMP 98.1; O2SAT 98
[2016-10-04] MEDS: REMOVE OLD NICOTINE PATCH T-DERMAL SCH (21:00)
[2016-10-04] MEDS ORDERED: OLANZapine ODT 5 MG TAB PO SCH (21:00)
[2016-10-04] MEDS: DIVALPROEX SODIUM E.R. 500 MG TAB PO SCH (21:10)
[2016-10-05] MEDS: ALUMINUM/MAGNESIUM/SIMETH 30 ML CUP PO PRN (04:56)
[2016-10-05 05:45] VITALS: BP 129/71; PULSE 84; RESP 18; TEMP 98; O2SAT 100
[2016-10-05] MEDS: ZIPRASIDONE HCL 60 MG CAP PO SCH (09:00)
[2016-10-05] MEDS: NICOTINE 21 MG/24 HR PATCH T-DERMAL SCH (09:00)
[2016-10-05] MEDS ORDERED: ZYPR5TAB PO (12:40)
[2016-10-05] MEDS ORDERED: DEPA500T3 PO (12:40)
[2016-10-05] MEDS ORDERED: GEOD60CA PO (12:40)
--- NOTE | 2016-10-05 12:41 | HHI.DS ---
Psychiatry Discharge Summary Inpatient Psychiatric care?: Yes Advance Directive: No Reason Not Provided: DOES NOT HAVE Mental Health AdvanceDirective: No Health Care Proxy: No Admission Admission Date Sep 26, 2016 at 10:01 Admission Diagnosis: (1) Psychosis ICD Code: F29 (2) Cannabis abuse ICD Code: F12.10 Brief History Mr. Yan is a 21-year-old male with a reported history of ADHD , anxiety and psychosis who presents under a [place] act by law enforcement alleging aggressive behaviors. Reviewing the electronic medical record, I see that the patient was in the emergency room in July for agitated delirium thought to be associated with use of substances. He also had an admission last September under Dr. Eldridge with a self-limited psychosis thought to be due to substance use. Patient seen and examined with counselor. Chart reviewed. Case discussed with nursing staff. Patient has been extremely agitated on the unit requiring multiple ETO's. At the time of my evaluation the patient is disorganized and internally stimulated. He is quite easily agitated and becomes threatening at times. He admits to audiovisual hallucinations "here and there." He denies any suicidal or homicidal ideation but is definitely unreliable contract for safety in his present state. He endorses feelings of thought manipulation. Affect is quite labile. He is fairly dysphoric during my evaluation but subsequently is exalting and singing loudly on the unit. Psychiatric interview is fairly limited because of his degree of psychotic impairment at present. Even patient's degree of psychiatric impairment I have obtained collateral from patient's uncle, Jd Emerson at [phone]. He notes the patient is a student at [employer] and had been doing fairly well when last they spoke ~1 month ago. He was reportedly somewhat upset at his mother at that time. Mr. Emerson notes that patient's mother has mental issues and "killed her ." He also notes that the patient's other uncle has some mental illness that renders him "like a baby." Mr. Emerson is willing to act as patient's HCS if necessary. Past psychiatric history: Patient reports prior diagnosis of ADHD, anxiety and psychosis but does not agree with the psychosis diagnosis. He is treated by a Dr. Hernandes and is prescribed Zoloft, Concerta and Ativan he says. He also takes Seroquel "when I get revved up." He reports his only previous psychiatric admission was here at [facility]. History of suicide attempts. Family history: Patient unsure of family history. Chemical dependency history: Patient admits to recent use of cannabis. Social history: Patient reports that he lives with his mother. He is single with no children. He is a student and is not presently working. He denies any legal issues. No reported access to guns or firearms. Tobacco Use In Past 30 Days: Refused To Answer Alcohol Use: Never Hospital Course Patient was admitted to a locked, inpatient psychiatric unit. Appropriate precautions were in place throughout patient's hospital stay. Patient was seen and examined daily on the unit by psychiatry and also visited by counselor. Medications were adjusted. Patient tolerated medications well without side effects. Patient did have some improvement in his presenting psychiatric symptomatology during the course of his hospital stay. His mood stabilized and his behavior improved. There is no evidence of any suicidal or homicidal behavior on the inpatient psychiatric unit. Patient has been compliant with medications. On the day of discharge: Patient's case was presented to the [place] act court, and the housing court judge has ordered his release from the inpatient psychiatric unit. Inasmuch as the patient is declining voluntary psychiatric admission, I will arrange for his discharge today with psychiatric follow-up as arranged by counselor. Patient is also to follow-up with primary care. Patient to return to the psychiatric emergency room for any concerning psychiatric symptoms. Results Blood Pressure 129 / 71 Vital Signs Date Time Temp Pulse Resp B/P Pulse Ox O2 Delivery O2 Flow Rate FiO2 10/05/16 05:45 98.0 84 18 129/71 100 Laboratory Results Test 10/02/16 07:25 Valproic Acid (Depakene) Level 97 MCG/ML (50-100) Summary of Procedures None done Imaging None done Pending results at discharge: No Medications # of Antipsychotic meds at D/C: 2 Appropriate >1 Antipsych meds?: 4 Approp Antipsych med options 1 - Minimum of three failed multiple trials of monotherapy. 2 - Documented plan to taper to monotherapy due to previous use of multiple meds OR cross-taper in progress at D/C. 3 - Documentation of augmentation of Clozapine. 4 - Justification other than those listed in allowable values 1-3, document here : Plan was as per progress note from 10/04, interrupted by court ordered release. Discharge Discharge Date: Oct 05, 2016 Discharge Diagnosis: (1) Bipolar disorder Diagnosis: Principal ICD Code: F31.9 (2) Cannabis abuse Diagnosis: Secondary ICD Code: F12.10 Mental Status Exam at Disch Patient is casually dressed. He is well groomed. He is awake and alert and oriented to person and hospital at least. No abnormal motor movements noted. Speech is within normal limits for rate, tone and volume. Language and fund of knowledge seem average. Mood remains slightly elevated and affect is somewhat expansive. Thought process fairly linear. No danielle delusional material. No AVH. No SI or HI voiced. Insight and judgment are fair at best. Pt Condition on Discharge: Guarded (Court ordered release) Discharge Disposition: Discharge Home Discharge Instructions Diet Instructions: As Tolerated, No Restrictions Activities you can perform: Weight Bearing as Taiwo Scheduled Appointment: as per counselor's notes New Medications: Olanzapine (Zyprexa) 5 Mg Tab 5 MG PO HS Mental Health Days 15 Ref 1 TAB Divalproex ER (Depakote ER) 500 Mg Leidy 1500 MG PO HS Mental Health Days 15 Ref 1 TAB Ziprasidone (Geodon) 60 Mg Cap 120 MG PO BIDPC Mental Health Days 15 Ref 1 CAP Discontinued Medications: Lorazepam (Lorazepam) 0.5 Mg Tab 0.5 MG PO Q4H PRN For mild anxiety / dyspnea Ref 0 TAB Methylphenidate CD 24 HR (Methylphenidate CD 24 HR) 20 Mg Capcr 20 MG PO DAILY Attention Deficit Disorder #30 Ref 0 CAP Methylphenidate ER 24 HR (Concerta) 18 Mg Leidy Unknown Dose PO DAILY ADHD #30 Ref 0 TAB Sertraline (Sertraline) 50 Mg Tab 50 MG PO DAILY #30 Ref 0 TAB Discharge Time <= 30 minutes Discharge/Advance Care Plan Health Problems: (1) Bipolar disorder (2) Cannabis abuse Goals to promote your health * To prevent worsening of your condition and complications * To maintain your health at the optimal level Directions to meet your goals Take your medications as prescribed Follow your dietary instruction Follow activity as directed Keep your appointments as scheduled Take your immunizations and boosters as scheduled If your symptoms worsen call your PCP, if no PCP go to Urgent Care Center or Emergency Room For 26/02 questions related to your inpatient stay or results of tests pending at discharge, please contact Dr. Jonathan Way at Smoking is Dangerous to Your Health. Avoid second hand smoking Problem Qualifiers (1) Psychosis: Qualified Code: F23 - Brief psychotic disorder (2) Bipolar disorder: Qualified Code: F31.73 - Bipolar disorder, in partial remission, most recent episode manic Jonathan Way MD Oct 05, 2016 12:41
--- NOTE | 2016-10-05 12:41 | HHI.PYPN ---
Objective Alert: Yes Joes: Person, Place Mood: Calm Affect: Other (Mildly expansive.) Memory Intact: Comment (Not formally assessed) Hallucinations: Other (No AVH) Delusions: Yes Delusion Type: Grandiose Suicidal: Ideation (Denies SI) Homicidal: Ideation (Denies HI) Vitals/IOs Vital Signs Date Time Temp Pulse Resp B/P Pulse Ox O2 Delivery O2 Flow Rate FiO2 10/05/16 05:45 98.0 84 18 129/71 100 Assessment & Plan Problem List: (1) Bipolar disorder ICD Code: F31.9 (2) Cannabis abuse ICD Code: F12.10 Assessment & Plan Estimated LOS: days Request HC Surrog/Guard Advoc?: Yes Problem Qualifiers (1) Bipolar disorder: Qualified Code: F31.2 - Bipolar affective disorder, currently manic, severe, with psychotic features Jonathan Way MD Oct 05, 2016 12:40
== END 2016-10-05 16:10 | disposition home or self-care (01) | DRG 885 ==
LOC: NEPA 18:45 → NEDA 09-26 10:01 → H260 09-26 10:36 → H270 09-26 10:58 → H260 10-04 10:35
PROVIDERS: ADMIT Psychiatry & Neurology Psychiatry; ATTEND Psychiatry & Neurology Psychiatry
DX: F31.9 Bipolar disorder, unspecified (principal); Z78.1 Physical restraint status; F12.10 Cannabis abuse, uncomplicated; F90.9 Attention-deficit hyperactivity disorder, unspecified type; F41.9 Anxiety disorder, unspecified; Z91.5 Personal history of self-harm
CPT/HCPCS: 80048; 80053; 80061; 80076; 80164; 80307; 80320; 81001; 82140; 83036; 84443; 85025; 93005; 96372; 96374; G0481; J1200; J2060; J3486